=== PATIENT | female | born 2000 | race Caucasian/White ===

== ENCOUNTER 2023-05-28 19:14 | Emergency (ER) | payer MEDICAID ==
[~2023-05-28] VITALS: Ht 160 cm; Wt 58.5 kg
[2023-05-28 19:55] VITALS: O2SAT 99
[2023-05-28] MEDS ORDERED: CYCLOBENZAPRINE 10MG TABLET PO ONE (20:15)
[2023-05-28] MEDS ORDERED: IBUPROFEN 400MG TABLET PO ONE (20:15)
[2023-05-28] MEDS ORDERED: LIDOCAINE 5% PATCH TOP SCH (20:15)
[2023-05-28] MEDS ORDERED: LIDO700A15 TP (20:59)
[2023-05-28] MEDS ORDERED: CYCL5TAB MT (20:59)
[2023-05-28] MEDS ORDERED: IBUP-2028 MT (20:59)
[2023-05-28 21:27] VITALS: BP 128/84; PULSE 88; RESP 16; TEMP 98.6
== END 2023-05-28 21:27 | disposition home or self-care (01) ==
LOC: ER 19:25
DX: S40.021A Contusion of right upper arm, initial encounter (principal); S16.1XXA Strain of muscle, fascia and tendon at neck level, initial encounter; Z91.018 Allergy to other foods; V49.9XXA Car occupant (driver) (passenger) injured in unspecified traffic accident, initial encounter; Y93.89 Activity, other specified; Y92.89 Other specified places as the place of occurrence of the external cause; Y99.8 Other external cause status
CPT/HCPCS: 99283